=== PATIENT | male | born 1975 | race African-American/Black ===

== ENCOUNTER 2017-03-17 05:27 | Day surgery (SDC) | payer BC ==
[~2017-03-17] VITALS: Ht 170.2 cm; Wt 136.1 kg
--- NOTE | ~2017-03-17 | O ---
[facility] [place] [address] OPERATIVE REPORT Name: JOSE ANTONIO TRIPLETT V Room #: 150-11 [facility]..#: [id number] Admission: 03/17/17 Attend Phys: Arun Marquez MD Discharge: Date of : 77 Report #: [id number] THIS REPORT FOR: //name// CC: Mary Bernal DO Lucius Marquez DATE OF SERVICE: 03/17/2017 PATIENT OF: Dr. Arun Marquez, Dr. Lucius Russell, and Dr. Mary Bernal. PREOPERATIVE DIAGNOSIS: Recurrent ventral incisional hernia. POSTOPERATIVE DIAGNOSIS: Recurrent ventral incisional hernia. PROCEDURE: Repair of a recurrent ventral incisional hernia. SURGEON: Arun Marquez MD ANESTHESIA: General. The patient was brought to the operating room and placed on operative table in the supine position. Sequential compression devices were in place for DVT prophylaxis. He received an appropriate preoperative dose of Ancef. The patient underwent a general LMA anesthesia and the abdomen was then prepped and draped in a sterile fashion. Skin and subcutaneous tissue around the supraumbilical area was then infiltrated with 0.5% Marcaine. A transverse skin incision was performed over the hernia using a #15 scalpel blade. Hemostasis obtained using electrocautery. Dissection was carried down through the subcutaneous tissue to the hernia sac, which was dissected free, opened and some incarcerated omentum was dissected free and reduced back into the abdomen. The hernia sac was excised and sent as specimen to pathology. The actual defect then was about the size of tip of my index finger and I decided to close this primarily. The hernia defect was closed using interrupted [id number] #1 Prolene sutures. Further infiltration was obtained to the fascia and deep subcutaneous tissue and the skin using the 0.5% Marcaine. Deep and superficial subcutaneous tissue was then reapproximated using simple interrupted 2-0 chromic sutures and the skin then closed with a running 4-0 subcuticular Vicryl stitch. The wound was then dressed with Dermabond, Telfa, 4 x 4 gauze, sponge and tape. The patient was then awakened from the general anesthesia and taken to recovery room in good condition. Estimated blood loss was approximately 5 mL and the [facility] [address] [place] [address] OPERATIVE REPORT Name: JOSE ANTONIO TRIPLETT V Room #: 150-11 [facility]..#: [id number] Admission: 03/17/17 Attend Phys: Arun Marquez MD Discharge: Date of : 77 Report #: [id number] patient tolerated procedure well. All sponge, lap and instrument counts correct times 2. By: [id number] Arun Marquez MD /nt
--- NOTE | ~2017-03-17 | H ---
[facility] [place] [address] HISTORY AND PHYSICAL Name: JOSE ANTONIO TRIPLETT V Room #: 150-11 [facility]..#: [id number] Admission: 03/17/17 Attend Phys: Arun Marquez MD Discharge: Date of : 77 Report #: [id number] THIS REPORT FOR: //name// CC: FAM anabela Marquez DATE OF SERVICE: 03/17/[address] Arnu Marquez, Dr. Lucius Russell, Dr. Mary Bernal. CHIEF COMPLAINT: Abdominal pain and a bulge. HISTORY OF PRESENT ILLNESS: The patient is a 41-year-old morbidly obese -[place] male, who approximately 2-3 months ago started noticing some pain around his umbilicus. He was then able with feel a deep bulge. He has had a previous infraumbilical hernia repair many years ago. He denied any changes in bowel or bladder habits. He states that with his previous hernia repair, he did not have mesh. He is a diabetic. He was then sent for surgical consultation. PAST MEDICAL HISTORY: Hypertension, obesity, dyslipidemia, coronary artery disease with myocardial infarction, diabetes. PAST SURGICAL HISTORY: Umbilical hernia repair. MEDICATIONS: Metformin, Alogliptin benzoate, metoprolol, irbesartan, pravastatin, aspirin. FAMILY HISTORY: Mother with history of hypertension, breast cancer, myocardial infarction, hypercholesterolemia. Father with history of diabetes and hypercholesterolemia. ALLERGIES: No known drug allergies. SOCIAL HISTORY: Single, smokes cigars, drinks alcohol occasionally. He is employed at [employer]. REVIEW OF SYSTEMS: Pertinent positives as above. Full review of systems otherwise negative. PHYSICAL EXAMINATION: GENERAL: This is a well-developed, well-nourished, obese -[place] male, in no acute distress. VITAL SIGNS: Stable. He is afebrile. Height is 68 inches. His weight is 313 [facility] [address] [place] [address] HISTORY AND PHYSICAL Name: JOSE ANTONIO TRIPLETT V Room #: [address] [place] [address].#: [id number] Admission: 03/17/17 Attend Phys: Arun Marquez MD Discharge: Date of : 77 Report #: [id number] pounds. BMI of 47.6. HEENT: Sclerae is nonicteric. Mucous membranes are moist and pink. NECK: There is no adenopathy, no thyromegaly. LUNGS: Clear to auscultation bilaterally. Normal excursion. CARDIOVASCULAR: Regular rate and rhythm. No murmurs, S3 or S4. Normal PMI. ABDOMEN: Obese, soft, flat, slightly tender in the supraumbilical area. There is a small supraumbilical bulge, which is mildly tender. There is a healed infraumbilical incision scar. No other organomegaly or masses. EXTREMITIES: No clubbing, cyanosis or edema. NEUROLOGIC: Intact with a clear mental status. IMPRESSION: A 41-year-old morbidly obese -[place] male with a supraumbilical recurrent hernia. I fully discussed with the patient the diagnosis, prognosis, and treatment options. I have recommended supraumbilical hernia repair. He states he understands and agrees with proposed surgery. PLAN: We will perform a recurrent ventral incisional supraumbilical hernia repair under general anesthesia as an outpatient at [facility] with possible mesh. The procedure and its risks, benefits and possible complications including possible need for mesh were fully discussed with the patient. He states he understands and agrees to proposed surgery. <ELECTRONICALLY SIGNED> By: Arun Marquez MD 03/17/17 1536 [id number] Arun Marquez MD /nt
--- NOTE | ~2017-03-17 | S ---
[facility] [address] [place] [address] SURGICAL PATH RPT PROCEDURE Name: JOSE ANTONIO TRIPLETT V Room #: DEP [facility] M.R.#: [id number] Admission: 03/17/17 Date of : 77 Discharge: 03/17/17 Report #: [id number] Path Case #: [id number] PATHOLOGY REPORT DRAFT COLLECTION DATE: 03/17/2017 RECEIVED DATE: 03/17/2017 SPECIMEN(S) RECEIVED: A.Hernia sac
--- NOTE | ~2017-03-17 | EKG ---
[address] [address] ELECTROCARDIOGRAM REPORT Name: JOSE ANTONIO TRIPLETT V Room #: [address]#: [id number] Admission: 03/17/17 Attend Phys: Arun Marquez MD Discharge: Date of : 77 Report #: [id number] THIS REPORT FOR: //name// [facility] Test Date: 2017-03-17 Test Time: 12:11:21 Pat Name: JOSE ANTONIO TRIPLETT Department: Room: 150 11 Gender: M Spray Gun Operator: CICI : 1975 Requested By: Arun Marquez Order Number: [id number] MD: Mike Galvan Measurements Intervals [place] Rate: 76 P: -9 [place]: 204 QRS: 35 QRSD: 93 T: 26 QT: 392 QTc: 441 Interpretive Statements Sinus rhythm No significant abnormality Compared to ECG 11/12/2008 07:38:21 No significant change was found Electronically Signed On 03-17-2017 17:12:30 [employer] by Mike Galvan [email or web address] <ELECTRONICALLY SIGNED> By: Mike Galvan MD, [facility] 03/17/17 1712 1211 10 Mike Galvan MD, FACC /EPI
[~2017-03-17 05:27] MED LIST: ADVIL200 MG PO; AMOXICILLIN875 MG PO; ASPIRIN325 PO; CHLORTHALIDONE25 MG PO; CRESTOR20 MG PO; LOPRESSOR25 PO; OMEPRAZOLE40 MG PO; SIMVASTATIN40 MG PO; TOPROL XL50 MG PO; VITAMIN D3400 UNIT/1 PO
[2017-03-17 12:36] LABS: CALCIUM 9.5 mg/dL (8.5-10.1); CREATININE 1.1 mg/dL (0.7-1.3); POTASSIUM 3.6 mmol/L (3.5-5.1)
[2017-03-17 12:58] VITALS: BP 11/63
[2017-03-17] MEDS ORDERED: NORCO 5-325 TA1 EAC1 PO (15:30)
[2017-03-17 15:42] VITALS: BP 11/63
== END 2017-03-17 16:25 | disposition home or self-care (01) ==
LOC: OR 05:27 → TBA 05:27 → OR 09:50
PROVIDERS: Surgery
DX: K43.2 Incisional hernia without obstruction or gangrene (principal); I10 Essential (primary) hypertension; E78.00 Pure hypercholesterolemia, unspecified; I25.10 Atherosclerotic heart disease of native coronary artery without angina pectoris; E11.9 Type 2 diabetes mellitus without complications; E66.09 Other obesity due to excess calories; I25.2 Old myocardial infarction; K21.9 Gastro-esophageal reflux disease without esophagitis; G47.33 Obstructive sleep apnea (adult) (pediatric); Z98.890 Other specified postprocedural states; F17.210 Nicotine dependence, cigarettes, uncomplicated; Z79.82 Long term (current) use of aspirin; Z79.899 Other long term (current) drug therapy; Z79.891 Long term (current) use of opiate analgesic; Z68.42 Body mass index [BMI] 45.0-49.9, adult
CPT/HCPCS: 50010; 50101; 50386; 50417; 54118; 56524; 56525; 56526; 62110; 62900; 64031; 70005